=== PATIENT | male | born 1950 | race Caucasian/White ===

== ENCOUNTER → 2016-07-17 | Outpatient (CLI) | payer OTHER ==
--- NOTE | 2016-07-17 11:25 | ECHOS ---
DATE OF SERVICE: 07/17/2016 AGE: 65Y SEX: M HT: 70 WT: 195lbs. Protocol Mau: X Others: Stress Echo Stage: III Dur. of Exercise: 7:30 *Heart Rate Blood Pressure *Rest: 67 Rest: ( ) * *Max. Achieved: 139 Maximum BP: 173/64 85% PMHR: ( ) 100% PMHR: 150 *METS: 9 INDICATIONS: Chest pain. MEDICATIONS: Aspirin. Baseline EKG shows sinus rhythm, normal axis, normal intervals. Patient exercised on Mau protocol for a total of 7-1/2 minutes achieving 9 METs; 85% of predicted maximal heart rate without chest pain. At peak exercise, there was [address] segment depression noted in the inferolateral leads. Baseline echo shows normal left ventricular size, wall motion and systolic function. Postexercise, there is normal hyperdynamic response of all segments of myocardium noted. CONCLUSION: 1. Average exercise tolerance. 2. Abnormal stress test by EKG criteria. 3. No exercise induced wall motion abnormalities.
== END | disposition home or self-care (01) ==
LOC: RADNMMAIN 09:56
PROVIDERS: ATTEND Internal Medicine
DX: R07.9 Chest pain, unspecified (principal)
CPT/HCPCS: 76770; 93017; 93350

== ENCOUNTER → 2016-07-17 | Outpatient (CLI) | payer OTHER ==
--- NOTE | 2016-07-17 15:06 | US ---
EXAMINATION TYPE: US kidneys/renal and bladder DATE OF EXAM: 07/17/2016 2:06 PM COMPARISON: Previous study dated 01/17/2015. CLINICAL HISTORY: N28.1 ACQUIRED RENAL CYST. Follow up left renal cyst EXAM MEASUREMENTS: Right Kidney: 11.7 x 7.0 x 6.3 cm Left Kidney: 11.9 x 4.5 x 5.8 cm TECHNOLOGIST IMPRESSION: Right Kidney: No hydronephrosis or masses seen Left Kidney: superior simple cyst= 5.0 x 3.8 x 4.5 cm Bladder: distended, wnl as visualized Bilateral Jets seen Yes IMPRESSION: STABLE, SIMPLE APPEARING 5 CM LEFT RENAL CYST.
== END ==
LOC: RADUSWWP 13:42
PROVIDERS: ATTEND Internal Medicine
DX: N28.1 Cyst of kidney, acquired (principal)
CPT/HCPCS: 76770

== ENCOUNTER → 2016-07-31 | Outpatient (CLI) | payer OTHER ==
--- NOTE | 2016-07-31 12:45 | NM ---
EXAMINATION TYPE: NM stress cardiolite complete DATE OF EXAM: 07/31/2016 12:41 PM COMPARISON: Previous study dated 04/23/2011. HISTORY: Abnormal EKG TECHNIQUE: After the intravenous administration of 10.7 mCi Tc 99m Sestamibi - Rest images obtained 45 minutes post injection. The patient exercised using a ENRIQUETA protocol and 1 minute prior to peak exercise was injected with 23.85 mCi Tc 99m Sestamibi - Stress images obtained 30 minutes post inject ion. FINDINGS: Targeted heart rate was achieved during performance of the study. Review of stress and rest SPECT etta ges demonstrates no distinct perfusion abnormality. Gated analysis shows normal wall motion with an estimated left ventricular ejection fraction of 61 %. There is some thinning of the inferior wall. This may be due to previous transmural infarct or diaphr agmatic attenuation. There is no convincing inducible ischemic change. IMPRESSION: I DO NOT SEE CONVINCING EVIDENCE OF INDUCIBLE ISCHEMIC CHANGE AT THIS TIME.
--- NOTE | 2016-07-31 12:47 | EST ---
DATE OF SERVICE: 07/31/2016 AGE: 65Y SEX: M HT: 70" WT: 195 lbs. Protocol Mau: X Other: Cardiolite Stage: III Dur. of Exercise: 8:45 *Heart Rate Blood Pressure *Rest: 57 Rest: 125/76 * *Max. Achieved: 144 Maximum BP: 188/72 85% PMHR: 130 100% PMHR: 153 *METS: 9.5 INDICATIONS: Abnormal EKG. MEDICATIONS: Baseline rhythm is sinus mechanism, rate of 57. Normal axis and intervals. Normal electrocardiogram. Baseline blood pressure 125/76 mmHg. Patient exercised on Mau protocol for 8 minutes 45 seconds reaching peak rate 144 beats per minute, which is equal to 94% of maximum predicted heart rate; peak blood pressure 188/72 mmHg. Test was terminated secondary to fatigue. There was no chest pain. Electrocardiograph monitoring revealed no evidence of diagnostic ischemic ST deviation. Cardiolite was injected at peak exercise. CONCLUSION: 1. Good exercise tolerance with normal electrocardiograph response to exercise. 2. Nuclear images will be reported separately.
== END | disposition home or self-care (01) ==
LOC: RADNMMAIN 09:13
PROVIDERS: ATTEND Internal Medicine
DX: R94.31 Abnormal electrocardiogram [ECG] [EKG] (principal)
CPT/HCPCS: 93017; 78452; A9500

== ENCOUNTER → 2017-08-05 | Outpatient (CLI) | payer OTHER ==
--- NOTE | 2017-08-06 09:19 | US ---
EXAMINATION TYPE: US kidneys/renal and bladder DATE OF EXAM: 08/05/2017 COMPARISON: US & CT CLINICAL HISTORY: N28.89 Other specified disorders kidney ureters. follow up cyst. EXAM MEASUREMENTS: Right Kidney: 12.8 x 7.2 x 6.5 cm Left Kidney: 12.9 x 5.6 x 5.9 cm Right Kidney: No hydronephrosis or masses seen Left Kidney: upper pole exophytic simple appearing cyst measures 4.5 x 4.1 x 4.5 cm. This appears sta ble from 07/17/2016 Bladder: wnl Bilateral Jets seen: Yes IMPRESSION: 1. 4 cm left renal cyst
== END | disposition home or self-care (01) ==
LOC: RADUSWWP 16:14
PROVIDERS: ATTEND Internal Medicine
DX: N28.1 Cyst of kidney, acquired (principal)
CPT/HCPCS: 76770

== ENCOUNTER → 2020-12-25 | Outpatient (CLI) | payer MEDICARE ==
--- NOTE | 2020-12-25 09:35 | US ---
EXAMINATION TYPE: US kidneys/renal and bladder DATE OF EXAM: 12/25/2020 COMPARISON: US CLINICAL HISTORY: N28.1 RENAL CYST. F/U left renal cyst EXAM MEASUREMENTS: Right Kidney: 11.6 x 6.1 x 5.2 cm Left Kidney: 11.6 x 5.7 x 5.4 cm Right Kidney: Appeared wnl Left Kidney: Cyst upper pole, slightly increased in size when compared to prior= 5.2 x 3.9 x 5.0 cm Bladder: wnl Bilateral Jets seen: No There is no evidence for hydronephrosis at this point in time. No nephrolithiasis is seen. No solid masses are identified. The urinary bladder is anechoic. Bilateral ureteral jets are seen. IMPRESSION: Left renal cyst as noted above.
== END | disposition home or self-care (01) ==
LOC: RADUSWWP 08:52
PROVIDERS: ATTEND Internal Medicine
DX: N28.1 Cyst of kidney, acquired (principal)
CPT/HCPCS: 76770

== ENCOUNTER → 2021-08-22 | Outpatient (CLI) | payer MEDICARE ==
--- NOTE | 2021-08-22 16:14 | US ---
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, no symptoms EXAM MEASUREMENTS: RIGHT: Peak Systolic Velocity (PSV) cm/sec ----- Right CCA: 87.1 ----- Right ICA: 88.3 ----- Right ECA: 173 ICA/CCA ratio: 1.0 RIGHT: End Diastole cm/sec ----- Right CCA: 14.3 ----- Right ICA: 15.6 ----- Right ECA: 0.0 LEFT: Peak Systolic Velocity (PSV) cm/sec ----- Left CCA: 102 ----- Left ICA: 118 ----- Left ECA: 159 ICA/CCA ratio: 1.1 LEFT: End Diastole cm/sec ----- Left CCA: 18 ----- Left ICA: 27.9 ----- Left ECA: 8.1 VERTEBRALS (direction of flow): Right Vertebral: Antegrade Left Vertebral: Antegrade Rhythm: Normal Mild heterogeneous plaque bilaterally with no significant stenosis IMPRESSION: 1. Heterogenous plaquing without significant flow-limiting stenosis within the internal carotid arter ies. 2. There is some moderate stenosis of the left and right external carotid artery vessels. Criteria for Assigning % of Stenosis / Diameter reduction (Estimation based on the indirect measurements of the internal carotid artery velocities (ICA PSV). 1. Normal (no stenosis)=ICA PSV < 125 cm/s: ratio < 2.0: ICA EDV<40 cm/s. 2. Less than 50% stenosis=ICA PSV < 125 cm/s: ratio < 2.0: ICA EDV<40 cm/s. 3. 50 to 69% stenosis=ICA PSV of 125 to 230 cm/s: ration 2.0 ? 4.0: ICA EDV 40-100 cm/s. 4. Greater than 70% stenosis to near occlusion= ICA PSV > 230 cm/s: ratio > 4.0: ICA EDV > 100 cm/s. 5. Near occlusion= ICA PSV velocities may be low or undetectable: variable ratio and ICA EDV. 6. Total occlusion=unable to detect flow.
== END | disposition home or self-care (01) ==
LOC: RADUSWWP 15:35
PROVIDERS: ATTEND Internal Medicine
DX: I65.23 Occlusion and stenosis of bilateral carotid arteries (principal); N28.1 Cyst of kidney, acquired
CPT/HCPCS: 93880

== ENCOUNTER → 2021-08-29 | Outpatient (CLI) | payer MEDICARE ==
--- NOTE | 2021-08-29 09:01 | US ---
EXAMINATION TYPE: US kidneys/renal and bladder DATE OF EXAM: 08/29/2021 COMPARISON: Renal ultrasound December 25, 2020 CLINICAL HISTORY: N28.1 Cyst of left kidney. Left renal cyst EXAM MEASUREMENTS: Right Kidney: 11.9 x 6.4 x 5.2 cm Left Kidney: 9.9 x 5.4 x 4.4 cm Right Kidney: No hydronephrosis or masses seen Left Kidney: Cystic area upper pole measuring 5.4 x 6.3 x 5.1 cm. Bladder: wnl Bilateral Jets seen: Yes There is no evidence for hydronephrosis at this point in time. No nephrolithiasis is seen. Redemonst ration of exophytic simple appearing thin-walled cyst upper pole left kidney measuring 6.3 cm on long axis current study is stable or slightly larger from prior exam. The urinary bladder is adequately d istended. Bilateral ureteral jets are seen. IMPRESSION: No hydronephrosis is seen bilaterally.
== END | disposition home or self-care (01) ==
LOC: RADUSWWP 08:02
PROVIDERS: ATTEND Internal Medicine
DX: I65.23 Occlusion and stenosis of bilateral carotid arteries (principal); N28.1 Cyst of kidney, acquired
CPT/HCPCS: 76770

== ENCOUNTER → 2021-10-01 | Outpatient (CLI) | payer MEDICARE ==
--- NOTE | 2021-10-01 13:06 | CA ---
Exercise Stress Test Report Name: Lan Cunningham Exam Date: 10/01/2021 10:04 Exam Location: [facility] Stress Ht (in): 70 Wt (lb): 180 BSA: 2.00 Ordering Phys: Ronak Edmonds MD Referring Phys: Grey, Technologist: Gregorio Posada Age: 71 Gender: M : 1950 Procedure CPT: Indications: I25.10 Atherosclerotic heart disease ICD-10 Codes: Patient History: ASCAD, high cholesterol, family history of heart disease Medications: Meds past 24 hrs: Pretest Chest Pain: STRESS TEST Mau Protocol Exercise Duration (min:sec): 09:[address] Depressions (mm): Angina Score: Kyle Score: Resting HR (bpm): 74 Peak HR (bpm): 133 Resting BP (mmHg): 122 / 66 Peak BP (mmHg): 197 / 69 MPHR: 147 Target HR: 125 % MPHR: 90 METS: 10.3 Total Dose: Peak Dose: Atropine: Double Product: 75333 BP Response: Stress Termination: TARGET HR REACHED/MAX EXERTION Stress Symptoms: NO SYMPTOMS Stress Summary: ECG ANALYSIS Resting ECG: Stress ECG: CONCLUSIONS Patient underwent exercise stress Cardiolite with a Mau protocol treadmill stress test. Patient exercised into Stage 3 for a total of 9 minutes reaching a total of 10.3 METS. Patient's maximum heart rate was 133 which represented 90 % age- predicted maximum heart rate. Stress EKG findings: At baseline patient's EKG showed normal sinus rhythm, normal axis, nonspecific 0.[address] depressions in inferior and lateral leads. At peak exercise, EKG showed significant change from baseline. Conclusions: 1. Nondiagnostic EKG portion secondary to baseline EKG abnormalities. 2. Good exercise capacity. 3. Nuclear portion to be reported separately. Dr. Sanjeev Suarez DO (Electronically Signed) Final Date: 01 October 2021 13:05
--- NOTE | 2021-10-01 17:33 | NM ---
EXAMINATION TYPE: NM stress cardiolite complete DATE OF EXAM: 10/01/2021 COMPARISON: NONE HISTORY: Atherosclerotic heart disease TECHNIQUE: After the intravenous administration of 9.4 mCi Tc 99m Sestamibi - Cardiolite resting SPE CT images acquired 55 minutes post injection. At peak stress 24.2 mCi Tc 99m Sestamibi - Stress images obtained 20 minutes post injection The patient was stressed with 0.4mg Lexiscan. FINDINGS: There is diminished density along the inferior wall on resting images. On stress images this may be s lightly larger. Findings could be compatible with stress-induced ischemic change along the inferior w all. 4 liver metastases correspond to these findings. Ejection fraction is 73% is normal. Some dyskinesia of the distal inferior wall appears to be present IMPRESSION: 1. Inferior wall stress-induced ischemic change. 2. Dyskinesia of the distal inferior wall. A [place] level critical message alert has been initiated for Ronak Edmonds MD via the [facility] Results System on 10/01/2021 5:31 PM. This message alert has been sent to Ronak Edmonds MD via the preferences provided by the clinician for the receipt of Radiology Critical Findings. Message ID [id number].
== END | disposition home or self-care (01) ==
LOC: RADNMMAIN 07:48
PROVIDERS: ATTEND Internal Medicine
DX: I25.10 Atherosclerotic heart disease of native coronary artery without angina pectoris (principal); G24.9 Dystonia, unspecified
CPT/HCPCS: 93017; 78452; A9500

== ENCOUNTER → 2021-11-06 | Outpatient (CLI) | payer MEDICARE | END | disposition home or self-care (01) | LOC: LABPAT 11:45 | PROVIDERS: ATTEND Internal Medicine Interventional Cardiology | DX: Z53.9 Procedure and treatment not carried out, unspecified reason (principal) | CPT/HCPCS: 80051; 82565; 84520; 85027 ==

== ENCOUNTER 2021-11-19 10:45 | Day surgery (SDC) | payer MEDICARE ==
[2021-11-06 13:04] LABS: HCT 44.1 % (39.0-53.0); HGB 15.3 gm/dL (13.0-17.5); MCH 33.9 pg (25.0-35.0); MCHC 34.7 g/dL (31.0-37.0); MCV 97.6 fL (80.0-100.0); Platelet Count 194 k/uL (150-450); RBC 4.52 m/uL (4.30-5.90); RDW 13.7 % (11.5-15.5)
[2021-11-06 13:15] LABS: African American GFR (CKD) >90 (>60 ml/min/1.73 sqM); Anion Gap 6 mmol/L; Blood Urea Nitrogen 17 mg/dL (9-20); Carbon Dioxide 28 mmol/L (22-30); Chloride 105 mmol/L (98-107); Non-African American GFR(CKD) 90 (>60 ml/min/1.73 sqM); Potassium 4.1 mmol/L (3.5-5.1); Sodium 139 mmol/L (137-145)
[2021-11-17 13:04] VITALS: BMI 25.8
[~2021-11-19 10:45] MED LIST: ALPRAZolam 0.25 MG TAB PO PRN; ALPRAZolam 0.5 MG TAB PO PRN; ASPIRIN 325 MG TAB PO ONE; NITROGLYCERIN SL TABS 0.4 MG TAB SUBLINGUAL PRN; SODIUM CHLORIDE 0.9% 1,000 ML in EMPTY BAG 1 BAG IV SCH
[2021-11-19] MEDS ORDERED: SODIUM CHLORIDE 0.9% 1,000 ML IV ONE (10:54)
[2021-11-19 11:09] VITALS: RESP 18; TEMP 97.9
[2021-11-19] MEDS ORDERED: VERAPAMIL 2.5 MG/ML 2 ML AMP ONE (11:41)
[2021-11-19] MEDS ORDERED: fentaNYL (PF) 50 MCG/ML 2 ML AMP ONE (11:59)
[2021-11-19] MEDS ORDERED: HEPARIN SODIUM 1,000 UN/ML (10ML VL) ONE (11:59)
[2021-11-19] MEDS ORDERED: fentaNYL (PF) 50 MCG/ML 2 ML AMP IVP ONE (12:31)
[2021-11-19] MEDS ORDERED: LIDOCAINE 1% INJ 10MG/ML (5 ML VIAL-PF) SQ ONE (12:37)
[2021-11-19] MEDS ORDERED: VERAPAMIL SYRINGE (5 MG/10 ML) INTRAARTER ONE (12:39)
[2021-11-19] MEDS ORDERED: MIDAZOLAM 2 MG/2 ML VIAL IVP ONE (12:40)
[2021-11-19] MEDS: HEPARIN SODIUM 1,000 UN/ML (10ML VL) IVP ONE ×2 (12:46→12:57)
[2021-11-19] MEDS ORDERED: NITROGLYCERIN 1000MCG/10ML SYRINGE INTRACORON ONE (13:02)
[2021-11-19] MEDS ORDERED: IOPAMIDOL-370 125ML BTL INJ ONE (13:08)
[2021-11-19] MEDS ORDERED: RX INFO: IV CONTRAST WAS GIVEN 1 EACH MISC MISCELLANE PRN (13:16)
--- NOTE | 2021-11-19 13:24 | P.CARDCATH ---
Date of Procedure: 11/19/21 Description of Procedure: Cardiac Catheterization: The patient is a 71-year-old male with known history of hyperlipidemia, diabetes mellitus recently had an abnormal MPI. Recommendations were made regarding cardiac catheterization, the risks and the complications were discussed with the patient who is in full understanding and agreement. Procedure Description: Patient was brought to cath lab technologist in fasting semi-sedated state after receiving Fentanyl and Benadryl achieiving moderate conscious sedated state. Using Xylocaine Anesthesia and Seldinger technique, a 6-Par[place]ayan sheath was introduced in the right radial artery . Subsequently, selective coronary angiography was performed using a 5-[place]ayan 3.5 left and 4 right bend Daphne catheter. Multiple views of the coronary artery including hemiaxial views were obtained. The 5-[place]ayan right Daphne catheter was used to cross the aortic valve and LVEDP was calculated. After removing the catheter a 6-[place]ayan 0.75 AL guiding catheter was introduced and the system and after cannulating the right coronary ostium an Omni Doppler flow wire was positioned in the distal RCA and IFR was calculated. Following that, catheter and sheath were removed. Hemostasis was obtained with deployment of TR band . There was no immediate complication. Patient was returned to room in stable condition. Of note, the patient received a total of 6000 units of intravenous heparin as well as intra-arterial verapamil. There was no immediate complications. Findings: Left main: This is a large size vessel, bifurcating into LAD and left circumflex, left main has 10% plaque distally. LAD: This is a large size vessel that reaches to the apex, giving rise to 2 diagonal branch. The mid LAD has 20% plaque with no high-grade stenosis Left circumflex: This is a nondominant vessel large in caliber giving rise to a large obtuse marginal branch, the obtuse marginal branch has 20-30% plaque with no high-grade stenosis RCA: This is a large dominant vessel, bifurcating distally into PDA and PLV, the proximal and mid RCA has intimal disease of 20-30%. The distal segment prior to the bifurcation has an eccentric 60% plaque but as of the vessel has no high- grade stenosis Left Ventriculogram: Not performed Hemodynamics: There was no gradient across the aortic valve, LVEDP 10-12 mmHg Conclusion: 1. Moderate disease in the distal RCA with mild disease in the proximal and mid 2. Moderate disease in the LAD and left circumflex 3. Nonhemodynamically significant IFR of the RCA with an IFR of 0.93 4. Normal LVEDP Recommendations: In view of the findings I have recommended to continue present medical therapy, with aggressive coronary risk modifications. The findings and the recommendations were discussed with the patient is family, they were informed understanding and agreement. Duration of sedation is 30 minutes.
[2021-11-19] MEDS ORDERED: SODIUM CHLORIDE 0.9% 1,000 ML IV SCH (13:30)
[2021-11-19 16:27] VITALS: BP 115/54; PULSE 56
[2021-11-19] MEDS ORDERED: GLIMEPIRIDE 2 MG TAB PO SCH (17:30)
[2021-11-20] MEDS ORDERED: TAMSULOSIN 0.4 MG CAP.ER.24H PO SCH (09:00)
[2021-11-20] MEDS ORDERED: ESCITALOPRAM 10 MG TAB PO SCH (09:00)
[2021-11-20] MEDS ORDERED: ASPIRIN 81 MG PO SCH (09:00)
[2021-11-20] MEDS ORDERED: ATORVASTATIN 10 MG TAB PO SCH (09:00)
== END 2021-11-19 16:45 | disposition home or self-care (01) ==
LOC: CATHCVL 10:45
PROVIDERS: ATTEND Internal Medicine Interventional Cardiology
DX: I25.10 Atherosclerotic heart disease of native coronary artery without angina pectoris (principal); R94.39 Abnormal result of other cardiovascular function study; E78.5 Hyperlipidemia, unspecified; E11.9 Type 2 diabetes mellitus without complications; Z91.048 Other nonmedicinal substance allergy status; Z90.410 Acquired total absence of pancreas; Z90.49 Acquired absence of other specified parts of digestive tract; I25.2 Old myocardial infarction; Z20.822 Contact with and (suspected) exposure to COVID-19; E78.2 Mixed hyperlipidemia; Z79.84 Long term (current) use of oral hypoglycemic drugs; Z79.82 Long term (current) use of aspirin; Z79.899 Other long term (current) drug therapy
CPT/HCPCS: 93458; 93799; 87635; C1887; C1894; C1769 ×2; J2250; J2001; J3010; J1644; Q9967; 80051; 82565; 84520; 85027

== ENCOUNTER → 2021-12-30 | Outpatient (CLI) | payer MEDICARE ==
--- NOTE | 2021-12-31 07:14 | US ---
EXAMINATION TYPE: US kidneys/renal and bladder DATE OF EXAM: 12/30/2021 COMPARISON: US, CT CLINICAL HISTORY: N28.1 LT RENAL CYST. Left renal cyst. EXAM MEASUREMENTS: Right Kidney: 12.7 x 6.1 x 6.2 cm Left Kidney: 11.5 x 6.0 x 5.1 cm Right Kidney: Measures slightly enlarged. No hydronephrosis or masses seen Left Kidney: Complex area seen upper pole: 5.5 x 4.4 x 6.4 cm. Anechoic area seen at mid: 0.9 x 1.2 x 1.3 cm. Bladder: Appears anechoic. Bilateral Jets seen: Yes IMPRESSION: 1. Complex cystic mass upper pole left kidney. Further characterization with CT is advised.
== END | disposition home or self-care (01) ==
LOC: RADUSWWP 16:08
PROVIDERS: ATTEND Internal Medicine
DX: N28.1 Cyst of kidney, acquired (principal)
CPT/HCPCS: 76770

== ENCOUNTER → 2022-01-20 | Outpatient (CLI) | payer MEDICARE ==
[2022-01-20 11:00] LABS: African American GFR (CKD) >90 (>60 ml/min/1.73 sqM); Blood Urea Nitrogen 25 mg/dL (9-20); Non-African American GFR(CKD) >90 (>60 ml/min/1.73 sqM)
--- NOTE | 2022-01-20 11:51 | CT ---
EXAMINATION TYPE: CT abdomen w con CT DLP: 956 mGycm, Automated exposure control for dose reduction was used. DATE OF EXAM: 01/20/2022 11:25 AM COMPARISON: CT abdomen pelvis most recent from 11/26/2012, renal ultrasound 12/30/2021. CLINICAL INDICATION:Male, 71 years old with history of N28.89 disorder of kidney and ureter; CYST TECHNIQUE: Standard CT of the abdomen following the administration of 70 cc of Isovue [address] material and oral contrast. Coronal and sagittal reformats were performed. FINDINGS: LOWER CHEST: Posterior dependent subsegmental atelectasis is noted. ABDOMEN LIVER: Unremarkable GALLBLADDER AND BILE DUCTS: The gallbladder is surgically absent. No biliary ductal dilatation. PANCREAS: Parenchyma calcifications likely related to chronic pancreatitis. No pancreatic ductal dila tation. Pancreatic tail 2.6 x 2.5 cm lobulated lesion. SPLEEN: Unremarkable. ADRENAL GLANDS: Unremarkable. KIDNEYS AND URETERS: No evidence of hydronephrosis or renal calculus. The kidneys enhance symmetrical ly. Homogeneous low attenuating 6.2 x 4.8 cm cyst in superior pole of the left kidney. No enhancing c omponent identified. No definitive septations. STOMACH AND BOWEL: Postsurgical changes of the stomach from bypass. Diverticulum involving the second portion the duodenum. The appendix is within normal limits. No evidence of bowel obstruction. PERITONEUM: No evidence of pneumoperitoneum or free fluid. VASCULATURE: Mild atherosclerotic calcifications are present throughout the abdominal aorta and its b ranches. No evidence of aortic aneurysm. MUSCULOSKELETAL: No acute osseous abnormalities LYMPH NODES: No gross evidence for lymphadenopathy. SOFT TISSUE/ABDOMINAL WALL: Tiny fat filled hernia. IMPRESSION: 1. Redemonstration of left upper pole cyst measuring up to 6.2 cm. This has increased in size when c ompared to prior CT dating back to 2012. No solid enhancing component identified. Continued follow-up with renal ultrasound 1 year is recommended. 2. Lobulated 2.7 cm pancreatic tail lesion which may represent a pseudocyst versus other etiologies. Further evaluation with MR pancreas is recommended.
== END | disposition home or self-care (01) ==
LOC: RADCTMAIN 09:50
PROVIDERS: ATTEND Internal Medicine
DX: N28.89 Other specified disorders of kidney and ureter (principal)
CPT/HCPCS: 82565; 84520; 74160; 36415; Q9967

== ENCOUNTER → 2022-02-03 | Outpatient (CLI) | payer MEDICARE ==
[2022-02-03 10:49] LABS: ALT 41 U/L (10-49); AST 26 U/L (14-35); African American GFR (CKD) 108.5 (60.0-200.0); Albumin 3.9 g/dL (3.8-4.9); Albumin/Globulin Ratio 1.63 (1.60-3.17); Alkaline Phosphatase 93 U/L (41-126); BUN/Creat Ratio 20.14 Ratio (12.00-20.00); Blood Urea Nitrogen 14.1 mg/dL (9.0-27.0); Carbon Dioxide 27.7 mmol/L (20.0-27.5); Chloride 102 mmol/L (96-109); Chol/HDL Ratio 4.03 Ratio; Globulin 2.4 g/dL (1.6-3.3); Glucose 162 mg/dL (70-110); LDL Cholesterol,Calculated 57.1 mg/dL (0.0-131.0); Non-African American GFR(CKD) 93.6 (60.0-200.0); Potassium 4.1 mmol/L (3.5-5.5); Sodium 139 mmol/L (135-145); Total Protein 6.3 g/dL (6.2-8.2)
== END | disposition home or self-care (01) ==
LOC: LABWHC1 07:05
PROVIDERS: ATTEND Internal Medicine Interventional Cardiology
DX: E78.2 Mixed hyperlipidemia (principal)
CPT/HCPCS: 36415; 80053; 80061

== ENCOUNTER → 2022-10-02 | Outpatient (CLI) | payer MEDICARE ==
--- NOTE | 2022-10-02 14:15 | US ---
EXAMINATION TYPE: US kidneys/renal and bladder DATE OF EXAM: 10/02/2022 COMPARISON: CT abdomen January 20, 2022 CLINICAL INDICATION: Male, 72 years old with history of N28.1 CYST OF KIDNEY; cyst left kidney EXAM MEASUREMENTS: Right Kidney: 12.5 x 6.1 x .4 cm Left Kidney: 11.8 x 5.4 x 4.7 cm Right Kidney: No hydronephrosis or masses seen Left Kidney: Cystic area upper pole 5.9 x 6.2 x 4.3 cm. Bladder: wnl Bilateral Jets seen: Yes There is no evidence for hydronephrosis at this point in time. No nephrolithiasis is seen. Exophytic roughly 6.0 cm thin-walled cyst upper pole left kidney is redemonstrated. The urinary bladder is ad equately distended. Bilateral ureteral jets are seen. IMPRESSION: Redemonstration of 6.2 cm simple appearing thin-walled cyst upper pole left kidney.
== END | disposition home or self-care (01) ==
LOC: RADUSWWP 13:33
PROVIDERS: ATTEND Internal Medicine
DX: N28.1 Cyst of kidney, acquired (principal)
CPT/HCPCS: 76770

== ENCOUNTER 2023-01-28 12:45 | Day surgery (SDC) | payer MEDICARE ==
[2023-01-27 14:24] VITALS: BMI 25.1
[2023-01-28] MEDS ORDERED: LACTATED RINGERS 1,000 ML IV ONE (12:57)
--- NOTE | 2023-01-28 13:05 | P.GSHP ---
History of Present Illness H&P Date: 01/28/23 Chief Complaint: Colon cancer screening Patient was seen yesterday at the surgery center. He was scheduled for upper and lower endoscopy. Upper endoscopy revealed gastritis. Colonoscopy demonstrated a very poor prep. Patient underwent further bowel prep yesterday and here today for reattempt at colonoscopy. Past Medical History Past Medical History: Diabetes Mellitus, GERD/Reflux, Hyperlipidemia, Myocardial Infarction (ND) Additional Past Medical History / Comment(s): PT STATES EKG SHOWED OLD ND- UNKNOWN WHEN. PANCREATITIS WITH 6 MONTH HOSPITALIZATION Last Myocardial Infarction Date:: UNKNOWN History of Any Multi-Drug Resistant Organisms: None Reported Past Surgical History: Cholecystectomy Additional Past Surgical History / Comment(s): COLONOSCOPY. CYSTS REMOVED FROM PANCREATITIS Past Anesthesia/Blood Transfusion Reactions: No Reported Reaction Past Psychological History: Anxiety Smoking Status: Never smoker Past Alcohol Use History: None Reported Past Drug Use History: None Reported - Past Family History Father Family Medical History: Cancer Medications and Allergies Home Medications Medication Instructions Recorded Confirmed Type Aspirin [Adult Low Dose Aspirin EC] 81 mg PO DAILY 11/17/21 01/27/23 History Atorvastatin [Lipitor] 40 mg PO DAILY 11/17/21 01/27/23 History Baclofen 5 mg PO DAILY 11/17/21 01/27/23 History Docusate [Colace] 50 mg PO DAILY PRN 11/17/21 01/27/23 History Empagliflozin [Jardiance] 25 mg PO DAILY 11/17/21 01/27/23 History Escitalopram [Lexapro] 20 mg PO DAILY 11/17/21 01/27/23 History Folic Acid 1 mg PO DAILY 11/17/21 01/27/23 History Glimepiride [Amaryl] 2 mg PO BID 11/17/21 01/27/23 History Omeprazole Magnesium [PriLOSEC OTC] 20 mg PO DAILY 11/17/21 01/27/23 History Tamsulosin [Flomax] 0.4 mg PO DAILY 11/17/21 01/27/23 History Cetirizine HCl [Zyrtec] 10 mg PO DAILY 01/27/23 01/27/23 History Cyanocobalamin (Vitamin B-12) 1,000 mcg PO DAILY 01/27/23 01/27/23 History [Vitamin B-12] Semaglutide [Rybelsus] 7 mg PO DAILY 01/27/23 01/27/23 History traZODone HCL 100 mg PO HS 01/27/23 01/27/23 History Allergies Allergy/AdvReac Type Severity Reaction Status Date / Time hydrocodone [From Vicodin] Allergy MENTAL Verified 01/27/23 14:14 STATUS CHANGE hydromorphone [From Dilaudid] Allergy MENTAL Verified 01/27/23 14:14 STATUS CHANGE Iodinated Contrast Media Allergy Rash/Hives Verified 01/27/23 14:14 Surgical - Exam Physical exam: General: Well-developed, well-nourished HEENT: Normocephalic, sclerae nonicteric Abdomen: Nontender, nondistended Extremities: No edema Neuro: Alert and oriented Assessment and Plan (1) Colon cancer screening Narrative/Plan: Will proceed with colonoscopy at this time. Current Visit: Yes Status: Acute Code(s): Z12.11 - ENCOUNTER FOR SCREENING FOR MALIGNANT NEOPLASM OF COLON SNOMED Code(s): 529213540
[2023-01-28 13:19] VITALS: TEMP 97
[2023-01-28] MEDS ORDERED: PROPOFOL 10 MG/ML 20 ML VIAL IV ONE (13:40)
[2023-01-28 14:48] VITALS: BP 114/63; PULSE 75; RESP 17
--- NOTE | 2023-01-28 15:11 | P.PCN ---
Date of Procedure: 01/28/23 Procedure(s) Performed: PREOPERATIVE DIAGNOSIS: Colon cancer screening with history of polyps, poor prep yesterday POSTOPERATIVE DIAGNOSIS: Tortuous colon otherwise normal PROCEDURE: Colonoscopy ANESTHESIA: MAC SURGEON: Efrain Chambers M.D. SPECIMENS: None ENDOSCOPIC PROCEDURE: The patient was placed on the endoscopy table in the left decubitus position. The Olympus colonoscope was inserted into the anus and passed under direct visualization to the base of the cecum. The appendiceal orifice was visualized. From that point the scope was slowly withdrawn inspecting all surfaces carefully. There were no neoplastic inflammatory or polypoid lesions throughout the cecum, ascending, transverse, descending, sigmoid and rectum. There was no visible diverticulosis noted. Digital rectal examination was normal. The patient was taken to the recovery room in stable condition per anesthesia guidelines. RECOMMENDATIONS: Resume diet. Increase fiber. MiraLAX as needed. Repeat colonoscopy 5-10 years.
== END 2023-01-28 14:47 | disposition home or self-care (01) ==
LOC: ORWHC2ENDO 12:45
PROVIDERS: ATTEND Surgery
DX: Z12.11 Encounter for screening for malignant neoplasm of colon (principal); K63.89 Other specified diseases of intestine; E11.9 Type 2 diabetes mellitus without complications; F41.9 Anxiety disorder, unspecified; K21.9 Gastro-esophageal reflux disease without esophagitis; E78.5 Hyperlipidemia, unspecified; I25.2 Old myocardial infarction; Z90.49 Acquired absence of other specified parts of digestive tract; Z79.82 Long term (current) use of aspirin; Z79.84 Long term (current) use of oral hypoglycemic drugs; Z79.899 Other long term (current) drug therapy; Z88.5 Allergy status to narcotic agent; Z88.8 Allergy status to other drugs, medicaments and biological substances; Z86.010 Personal history of colon polyps
CPT/HCPCS: J2704; G0105; 45378

== ENCOUNTER → 2023-10-04 | Outpatient (CLI) | payer MEDICARE ==
[2023-10-04 16:10] LABS: ALT 40 U/L (10-49); AST 31 U/L (14-35); Albumin 4.4 g/dL (3.8-4.9); Alkaline Phosphatase 126 U/L (41-126); BUN/Creat Ratio 17.12 Ratio (12.00-20.00); Blood Urea Nitrogen 13.7 mg/dL (9.0-27.0); Carbon Dioxide 28.2 mmol/L (21.6-31.8); Chloride 105 mmol/L (96-109); Chol/HDL Ratio 2.64 Ratio; Globulin 2.2 g/dL (1.6-3.3); Glucose 144 mg/dL (70-110); LDL Cholesterol,Calculated 56.4 mg/dL (0.0-131.0); Potassium 4.8 mmol/L (3.5-5.5); Sodium 143 mmol/L (135-145); Total Bilirubin 0.5 mg/dL (0.3-1.2); Total Protein 6.6 g/dL (6.2-8.2); VLDL Calculation 11.98 mg/dL (5.00-40.00)
== END | disposition home or self-care (01) ==
LOC: LABWHC1 10:11
PROVIDERS: ATTEND Internal Medicine Interventional Cardiology
DX: E78.2 Mixed hyperlipidemia (principal)
CPT/HCPCS: 36415; 80053; 80061

== ENCOUNTER → 2024-01-18 | Outpatient (CLI) | payer MEDICARE ==
--- NOTE | 2024-01-18 11:42 | MR ---
EXAMINATION TYPE: MR Prostate wo/w con DATE OF EXAM: 01/18/2024 7:42 AM COMPARISON: None. CLINICAL INDICATION: Male, 73 years old with history of R97.20 ELEVATED PSA Elevated PSA TECHNIQUE: Multi-planar, multi-sequence imaging of the pelvis is performed prior to and following the uncomplicated administration of bolus intravenous gadolinium. CONTRAST: 8 Gadavist Interpretive Criteria: PI-RADS v2.1 SERUM PSA: 03/2023=3.37 11/2023=4.15 SURGICAL PATHOLOGY: No data available. FINDINGS: Prostatic dimensions: 5.9 x 5.4 x 4.5 cm. Ellipsoid Volume:75.07 (PSA density=0.06 ng/mL/mL) CENTRAL GLAND (Central and Transition Zones/CZ+TZ): Multiple bilateral, heterogenous appearing hypertrophic stromal nodules, without suspicious lesion. M edian lobe hypertrophy with protrusion into the base of the bladder. (PI-RADS 2) PERIPHERAL ZONE (PZ): Evaluation the posterior peripheral zone due to gas in the rectum. Bilateral linear, indistinct wedgelike areas of low ADC, and low T2 signal, No evidence of masslike a bnormality, or localized perfusional hypervascularity, to further suggest a focus of clinically signi ficant prostate cancer. (PI-RADS 2) SEMINAL VESICLES (SV): Symmetric and unremarkable. PERIPROSTATIC TISSUES: Unremarkable. LYMPH NODES: No enlarged pelvic lymph node. REMAINING PELVIS: Bladder wall is within normal limits given distention. No abnormal free or organized intrapelvic fluid collection. No pathologic bowel dilation or mural thickening. No hernia visualized OSSEOUS STRUCTURES: No suspicious osseous abnormality. IMPRESSION: 1. No specific features for high-risk prostate cancer. Maximum PI-RADS score: 2. 2. Moderate BPH, estimated gland volume 75.07 mL. 3. No suspicious osseous lesion. No lymphadenopathy. No evidence of prostate adenocarcinoma involving the periprostatic tissues. [facility], , 01/18/2024 11:40 AM
== END | disposition home or self-care (01) ==
LOC: RADMRIMAIN 06:28
PROVIDERS: ATTEND Internal Medicine
CPT/HCPCS: 72197

== ENCOUNTER → 2024-01-27 | Outpatient (CLI) | payer MEDICARE ==
--- NOTE | 2024-01-31 07:06 | US ---
EXAMINATION TYPE: US kidneys/renal and bladder DATE OF EXAM: 01/27/2024 COMPARISON: CLINICAL INDICATION: Male, 73 years old with history of N28.1 CYST OF LEFT KIDNEY; Follow up left lul al cyst EXAM MEASUREMENTS: Right Kidney: 11.5 x 5.7 x 6.6 cm Left Kidney: 11.6 x 5.4 x 5.4 cm Right Kidney: No hydronephrosis or masses seen Left Kidney: Upper mid pole simple appearing cyst= 6.4 x 4.5 x 6.5 cm Bladder: distended, anechoic Bilateral Jets seen IMPRESSION: 1. Left renal cyst [facility], Workstation: [id number], 01/31/2024 7:04 AM
== END | disposition home or self-care (01) ==
LOC: RADUSWWP 15:40
PROVIDERS: ATTEND Internal Medicine
DX: N28.1 Cyst of kidney, acquired (principal)
CPT/HCPCS: 76770

== ENCOUNTER → 2024-07-24 | Outpatient (CLI) | payer MEDICARE ==
[2024-07-24 12:22] LABS: African American GFR (CKD) >90 (>60 ml/min/1.73 sqM); Blood Urea Nitrogen 21 mg/dL (9-20); Non-African American GFR(CKD) >90 (>60 ml/min/1.73 sqM)
--- NOTE | 2024-07-24 13:24 | CT ---
EXAMINATION TYPE: CT abdomen wo/w con CT DLP: 1345 mGycm, Automated exposure control for dose reduction was used. DATE OF EXAM: 07/24/2024 1:07 PM COMPARISON: Multiple renal ultrasounds with most recent 01/27/2024, CT abdomen 01/20/2022 CLINICAL INDICATION:Male, 73 years old with history of R10.84 GENERALIZED ABDOMINAL PAIN; Generalized abdominal pain TECHNIQUE: Standard CT of the abdomen before and after the uneventful administration of 100 mL of I sovue-370 intravenously. Coronal and sagittal reformats were performed. Patient was premedicated for reported iodine allergy (hives). FINDINGS: LOWER CHEST: Minimal bilateral lower lobe linear atelectasis. Trace anterior pericardial effusion. ABDOMEN LIVER: Unremarkable GALLBLADDER AND BILE DUCTS: The gallbladder is surgically absent. No biliary duct dilatation. The por emily venous system is patent. PANCREAS: No pancreatic ductal dilatation. Several pancreatic parenchymal calcifications suggesting c hronic pancreatitis. Stable exophytic lobulated pancreatic tail lesion with some layering hyperattenu ation and internal low-density measuring 2.6 x 2.5 cm. SPLEEN: Unremarkable. ADRENAL GLANDS: Unremarkable. KIDNEYS AND URETERS: No evidence of hydronephrosis or renal calculus. The kidneys enhance symmetrical ly. Exophytic simple left superior pole cyst measuring up to 6.8 cm. Previously measured 6.2 cm. Cont rast is demonstrated within both collecting systems and the proximal ureters on the delayed phase. STOMACH AND BOWEL: Postsurgical changes of the stomach redemonstrated. No focal bowel wall thickening or surrounding inflammatory changes. Moderate amount of stool is present within the visualized colon . The appendix is within normal limits. No evidence of bowel obstruction. PERITONEUM: No evidence of pneumoperitoneum or free fluid. Similar kel mesentery. VASCULATURE: Mild atherosclerotic calcifications are present throughout the abdominal aorta and its b ranches. No evidence of aortic aneurysm. MUSCULOSKELETAL: No acute osseous abnormalities. No aggressive osseous lesion. Multilevel anterior os teophytosis. LYMPH NODES: No evidence for lymphadenopathy. SOFT TISSUE/ABDOMINAL WALL: Tiny fat filled umbilical hernia. IMPRESSION: 1. No CT evidence for acute abdominal process. 2. Mildly increased size of simple left renal upper pole cyst. 3. Stable lobulated 2.5 cm pancreatic tail lesion favored to represent a pseudocyst. 4. Stable kel mesentery. 5. Findings of chronic pancreatitis. [facility]: [id number], 07/24/2024 1:22 PM
== END | disposition home or self-care (01) ==
LOC: RADCTMAIN 11:36
PROVIDERS: ATTEND Internal Medicine
DX: K86.1 Other chronic pancreatitis (principal); N28.1 Cyst of kidney, acquired
CPT/HCPCS: 82565; 84520; 74170; 36415; Q9967

== ENCOUNTER → 2024-11-13 | Outpatient (CLI) | payer MEDICARE ==
[2024-11-13 15:50] LABS: INR 0.98 sec (0.93-1.11); Prothrombin Time 11.0 sec (9.9-11.9)
[2024-11-13 16:04] LABS: Bilirubin,Urine Negative (Negative); Blood,Urine Negative (Negative); Color,Urine Yellow (Yellow); Ketones,Urine Trace (Negative); Nitrite,Urine Negative (Negative); PH, Urine 5.0; Specific Gravity,Urine >1.035 (1.001-1.030); Urobilinogen,Urine 1.0
[2024-11-13 16:08] LABS: ALT 19 U/L (10-49); AST 18 U/L (14-35); Albumin 4.3 g/dL (3.8-4.9); Albumin/Globulin Ratio 1.79 Ratio (1.60-3.17); Alkaline Phosphatase 124 U/L (41-126); Anion Gap 12.20 mmol/L (4.00-12.00); BUN/Creat Ratio 24.00 Ratio (12.00-20.00); Blood Urea Nitrogen 16.8 mg/dL (9.0-27.0); Calcium 9.2 mg/dL (8.7-10.3); Carbon Dioxide 25.8 mmol/L (21.6-31.8); Chloride 104 mmol/L (96-109); Cholesterol 106.00 mg/dL (0.00-200.00); Globulin 2.4 g/dL (1.6-3.3); Glucose 161 mg/dL (70-110); HDL Cholesterol 37.40 mg/dL (40.00-60.00); LDL Cholesterol,Calculated 51.2 mg/dL (0.0-131.0); Potassium 5.2 mmol/L (3.5-5.5); Sodium 142 mmol/L (135-145); Total Protein 6.7 g/dL (6.2-8.2); Triglycerides 86.80 mg/dL (0.00-149.00); VLDL Calculation 17.36 mg/dL (5.00-40.00); Vitamin B12 856.0 pg/mL (200.0-944.0)
[2024-11-13 16:12] LABS: Basophils # (A) 0.06 X 10*3/uL (0.00-0.10); Basophils % (A) 1.0 %; Eosinophils # (A) 0.15 X 10*3/uL (0.04-0.35); Eosinophils % (A) 2.6 %; HCT 51.2 % (39.6-50.0); HGB 16.5 g/dL (13.0-17.0); Immature Grans, Automated 0.20 %; Lymphocytes # (A) 1.32 X 10*3/uL (0.90-5.00); Lymphocytes % (A) 22.7 %; MCH 31.3 pg (27.0-32.0); MCHC 32.2 g/dL (32.0-37.0); MCV 97.2 FL (80.0-97.0); Monocytes # (A) 0.40 X 10*3/uL (0.20-1.00); Monocytes % (A) 6.9 %; NRBC Per 100 WBC 0 X 10*3/uL (0.00-0.01); Neutrophils # (A) 3.87 X 10*3/uL (1.80-7.70); Neutrophils % (A) 66.6 %; Platelet Count 169 X 10*3/uL (140-440); RBC 5.27 X 10*6/uL (4.40-5.60); RDW 13.5 % (11.5-14.5); WBC 5.81 X 10*3/uL (4.50-10.00)
[2024-11-14 12:34] LABS: Zinc, Serum 94.0 ug/dL (60-130)
== END | disposition home or self-care (01) ==
LOC: LABWHC1 09:16
PROVIDERS: ATTEND Internal Medicine Interventional Cardiology
DX: Z00.00 Encounter for general adult medical examination without abnormal findings (principal); Z51.81 Encounter for therapeutic drug level monitoring; E78.2 Mixed hyperlipidemia; K86.81 Exocrine pancreatic insufficiency; K86.1 Other chronic pancreatitis; E55.9 Vitamin D deficiency, unspecified; E11.9 Type 2 diabetes mellitus without complications; N40.0 Benign prostatic hyperplasia without lower urinary tract symptoms; Z79.899 Other long term (current) drug therapy
CPT/HCPCS: 36415; 80053; 80061; 81003; 82043; 82306; 82570; 82607; 83036; 84153; 84443; 84446; 84590; 84630; 85025; 85610; 87086